=== PATIENT | female | born 1980 | race Caucasian/White ===

== ENCOUNTER 2019-03-13 14:54 | Emergency (ER) | payer OTHER ==
[2019-03-13] MEDS: SOD CHLORIDE 0.9% 500 ML IV (16:37)
[2019-03-13] MEDS: PROCHLORPERAZINE 10 MG INJ IV (16:38)
[2019-03-13] MEDS: ONDANSETRON 4 MG INJ IV (16:38)
[2019-03-13] MEDS: KETOROLAC 30 MG INJ IV (16:38)
== END 2019-03-13 17:32 | disposition left against medical advice (07) ==
LOC: FTE 14:54
DX: G44.209 Tension-type headache, unspecified, not intractable (principal)
CPT/HCPCS: 81025; 96374; 96375; 99284-25

== ENCOUNTER 2019-03-13 20:15 | Emergency (ER) | payer SELFPAY, OTHER | END 2019-03-14 01:12 | disposition left against medical advice (07) | LOC: FTE 20:15 | DX: Z53.21 Procedure and treatment not carried out due to patient leaving prior to being seen by health care provider (principal) ==